=== PATIENT | female | born 1995 | race Caucasian/White ===

== ENCOUNTER 2018-04-26 02:22 | Emergency (ER) | payer BC, MEDICAID ==
[~2018-04-26] VITALS: Wt 70.1 kg
[~2018-04-26 02:22] MED LIST: OMEP20CA9 PO; RANI150T35 PO; [UNRECOGNIZED DRUG - OTHER]
[2018-04-26] MEDS ORDERED: SOD CHLORIDE 0.9% 1,000 ML IV STA (02:35)
[2018-04-26] MEDS ORDERED: morphine 4 MG/ML VIAL IV STA (02:35)
[2018-04-26] MEDS ORDERED: ONDANSETRON 4 MG INJ IV STA (02:35)
--- NOTE | 2018-04-26 02:37 | ERD ---
ER Documentation Chief Complaint Chief Complaint EPIGASTRIC PAIN RADIATING TO BACK X'S 2 MONTHS. PAIN INCREASED TONIGHT HPI This is a 23-year-old female who presents for evaluation of epigastric pain. States that she has been having pain on and off for the last 2 months, however today it got worse. She denies fever, she endorses nausea vomiting, she has a history of appendectomy in 2009. She denies urinary symptoms. ROS All systems reviewed and are negative except as per history of present illness. Medications Home Meds Active Scripts Ranitidine Hcl* (Zantac*) 150 Mg Tablet, 150 MG PO BID PRN for epigastric pain, #30 TAB Prov:SAMANTHA PERALES. [employer] 12/20/14 Omeprazole* (Prilosec*) 20 Mg Capsule.dr, 20 MG PO DAILY for 14 Days, CAP Prov:SAMANTHA PERALES. [employer] 12/20/14 Reported Medications [Pre Nateal Vit.] No Conflict Check 10/24/13 Allergies Allergies: Coded Allergies: No Known Drug Allergy (Verified Allergy, Mild, 12/20/14) PMhx/Soc History of Surgery: Yes (APPENDECTOMY) Anesthesia Reaction: No Hx Neurological Disorder: No Hx Respiratory Disorders: No Hx Cardiac Disorders: No Hx Psychiatric Problems: No Hx Miscellaneous Medical Probl: No Hx Alcohol Use: No Hx Substance Use: No Hx Tobacco Use: No Physical Exam Vitals Vital Signs Date Temp Pulse Resp B/P (MAP) Pulse Ox O2 O2 Flow FiO2 Time Delivery Rate 04/26/18 98.2 69 22 119/89 100 Room Air 03:32 (99) 04/26/18 97.1 83 20 155/103 94 02:29 (120) Physical Exam Const: No acute distress Head: Atraumatic Eyes: Normal Conjunctiva, pupils are equal round reactive to light, no scleral icterus ENT: Normal External Ears, Nose and Mouth. Neck: Full range of motion. No meningismus. Resp: Clear to auscultation bilaterally Cardio: Regular rate and rhythm, no murmurs Abd: Soft, there is tenderness of the right upper quadrant, non distended, there is no rebound or guarding. Normal bowel sounds Skin: No petechiae or rashes Back: No midline or flank tenderness Ext: No cyanosis, or edema Neur: Awake and alert Psych: Normal Mood and Affect Result Diagram: 04/26/18 0258 04/26/18 0258 Results 24 hrs Laboratory Tests Test 04/26/18 02:58 04/26/18 03:12 White Blood Count 6.0 10^3/ul Red Blood Count 4.71 10^6/ul Hemoglobin 13.6 g/dl Hematocrit 41.4 % Mean Corpuscular Volume 87.9 fl Mean Corpuscular Hemoglobin 28.9 pg Mean Corpuscular Hemoglobin Concent 32.9 g/dl Red Cell Distribution Width 14.7 % Platelet Count 335 10^3/UL Mean Platelet Volume 10.0 fl Immature Granulocytes % 0.300 % Neutrophils % 56.3 % Lymphocytes % 30.3 % Monocytes % 8.0 % Eosinophils % 3.9 % Basophils % 1.2 % Nucleated Red Blood Cells % 0.0 /100WBC Immature Granulocytes # 0.020 10^3/ul Neutrophils # 3.4 10^3/ul Lymphocytes # 1.8 10^3/ul Monocytes # 0.5 10^3/ul Eosinophils # 0.2 10^3/ul Basophils # 0.1 10^3/ul Nucleated Red Blood Cells # 0.0 10^3/ul Prothrombin Time 11.5 Sec Prothrombin Time Ratio 0.9 INR International Normalized Ratio 0.83 Urine Color SHAINA Urine Clarity CLOUDY Urine pH 6.0 Urine Specific [place] 1.029 Urine Ketones TRACE mg/dL Urine Nitrite NEGATIVE mg/dL Urine Bilirubin NEGATIVE mg/dL Urine Urobilinogen 2+ mg/dL Urine Leukocyte Esterase 2+ Maya/ul Urine Microscopic RBC 1 /HPF Urine Microscopic WBC 13 /HPF Urine Squamous Epithelial Cells MANY /HPF Urine Bacteria FEW /HPF Urine Mucus MANY /HPF Urine Hemoglobin NEGATIVE mg/dL Urine Glucose NEGATIVE mg/dL Urine Total Protein NEGATIVE mg/dl Sodium Level 147 mmol/L Potassium Level 4.1 mmol/L Chloride Level 108 mmol/L Carbon Dioxide Level 27 mmol/L Anion Gap 12 Blood Urea Nitrogen 15 mg/dl Creatinine 0.88 mg/dl Est Glomerular Filtrat Rate mL/min > 60 mL/min Glucose Level 97 mg/dl Calcium Level 9.8 mg/dl Total Bilirubin 0.5 mg/dl Direct Bilirubin 0.00 mg/dl Indirect Bilirubin 0.5 mg/dl Aspartate Amino Transf (AST/SGOT) 480 IU/L Alanine Aminotransferase (ALT/SGPT) 541 IU/L Alkaline Phosphatase 231 IU/L Total Protein 8.6 g/dl Albumin 4.9 g/dl Globulin 3.70 g/dl Albumin/Globulin Ratio 1.32 Lipase 187 U/L POC Beta HCG, Qualitative NEGATIVE Current Medications Medications Dose Sig/Adrianna Start Time Status Last (Trade) Ordered Route PRN Stop Time Admin Dose Reason Admin Sodium 1,000 ml @ Q1H STAT 04/26/18 DC 04/26/18 Chloride 1,000 mls/hr IV 02:35 04/26/18 02:43 03:34 Morphine 4 mg ONCE STAT 04/26/18 DC 04/26/18 Sulfate IV 02:35 04/26/18 02:42 (morphine) 02:38 Ondansetron 4 mg ONCE STAT 04/26/18 DC 04/26/18 HCl (Zofran IV 02:35 04/26/18 02:42 Inj) 02:38 0.5 mg ONCE STAT 04/26/18 DC 04/26/18 Hydromorphone IV 03:12 04/26/18 03:19 HCl 03:13 (Dilaudid) Ketorolac 30 mg ONCE STAT 04/26/18 DC 04/26/18 Tromethamine IV 03:24 04/26/18 03:36 (Toradol) 03:25 Procedures/MDM This 23-year-old female who presents for evaluation of right upper quadrant pain, ultrasound shows dilated common bile duct, with gallstones noted. She has elevation in her LFTs, thus my primary concern is choledocholithiasis, patient was given antibiotics with Zosyn, she will be transferred to [facility] for insurance reasons, the accepting doctor is Dr. Gutierrez. Patient is otherwise hemodynamically stable, she received pain medications in the ED, with Toradol, morphine and Dilaudid. Patient was informed of transfer. EKG: Rate/Rhythm: Normal Sinus Rhythm QRS, ST, T-waves: No changes consistent w/ acute ischemia Impression: No evidence of ischemia or arrhythmia IMPRESSION: Study slightly limited by bowel gas. . Gallstones and sludge without marked g allbladder wall thickening and without pericholecystic fluid. Positive sonographic Flores's sign. HIDA scan could be obtained to confirm acute cholecystitis if needed. Dilated common bile duct. MRCP could be obtained for choledocholithiasis if desired. Departure Diagnosis: Primary Impression: Epigastric pain Additional Impression: Choledocholithiasis Condition: Stable DEV CRAWLEY MD Apr 26, 2018 02:37
[2018-04-26] MEDS ORDERED: HYDROmorphONE 0.5 MG/0.5 ML SYG IV STA ×2 (03:12→06:49)
[2018-04-26] MEDS ORDERED: KETOROLAC 30 MG INJ IV STA (03:24)
[2018-04-26] MEDS ORDERED: PIPER-TAZO 3.375 GM IV (PMX) 100 ML IVPB STA (04:39)
[2018-04-26] MEDS ORDERED: LACTATED RINGER'S 1,000 ML IV ONE (06:50)
[2018-04-26 08:26] VITALS: BP 112/69; PULSE 68; RESP 18
== END 2018-04-26 08:51 | disposition short-term general hospital (02) ==
LOC: E/R 02:22
DX: K80.50 Calculus of bile duct without cholangitis or cholecystitis without obstruction (principal)
CPT/HCPCS: 36415; 71045; 76705; 80053; 81001; 81025; 83690; 85025; 85610; 93005; 96361; 96374; 96375; 96376; 99285; J1170; J1885; J2270; J2405; J2543; J7030; J7120